=== PATIENT | female | born 1945 | race Caucasian/White ===

== ENCOUNTER 2017-04-09 13:52 | Emergency (ER) | payer MEDICARE ==
[~2017-04-09 13:52] MED LIST: Sodium Chloride 0.9% 1,000 ML BAG ONE
[2017-04-09] MEDS ORDERED: Ondansetron HCl/PF 4 MG/2 ML Vial ONE (14:25)
[2017-04-09] MEDS ORDERED: Metoclopramide HCl 10 MG/2 ML VIAL ONE (14:25)
[2017-04-09] MEDS ORDERED: Ketorolac Tromethamine 30 MG/ML VIAL ONE (14:25)
[2017-04-09 14:58] LABS: #Basophils 0.2 thou/uL (0.0-0.2); #Eosinphils 0.4 thou/uL (0.0-0.7); #Lymphocytes 2.9 thou/uL (1.20-3.40); #Monocytes 0.9 thou/uL (0.11-0.59); #Neutrophils 7.1 thou/uL (1.40-6.50); %Basophils 1.6 % (0.0-1.0); %Eosinophils 3.2 % (0.0-10.0); %Lymphocytes 25.2 % (21.0-51.0); %Monocytes 7.7 % (0.0-10.0); %Neutrophils 62.2 % (42.0-75.0); Hemoglobin 11.4 g/dL (12.0-16.0); Mean Corpuscular HGB CONC 33.4 g/dL (32.0-36.0); Mean Corpuscular Hemoglobin 30.5 pg (27.0-31.0); Mean Corpuscular Volume 91.3 fl (81.0-99.0); Mean Platelet Volume 7.5 fL (7.4-10.4); Platelet Count 147 thou/uL (130-400); RBC Distribution Width 14.5 % (11.5-14.5); Red Blood Cell (RBC) Count 3.73 mill/uL (4.20-5.40); White Blood Cell (WBC) Count 11.3 thou/uL (4.8-10.8)
[2017-04-09 15:12] LABS: ALT (SGPT) 31 U/L (8-55); AST (SGOT) 45 U/L (5-34); Albumin 4.3 g/dL (3.4-4.8); Alkaline Phosphatase 30 U/L (40-150); Anion Gap 18 mmol/L (10-20); BUN (Urea Nitrogen) 21 mg/dL (9.8-20.1); Bilirubin, Total 1.4 mg/dL (0.2-1.2); Calc. Creatinine Clearance 0 mL/min (70-130); Calcium 10.4 mg/dL (7.8-10.44); Carbon Dioxide 20 mmol/L (23-31); Chloride 103 mmol/L (98-107); Estimated GFR-MDRD 46; Globulin 4.1 g/dL (2.4-3.5); Glucose 177 mg/dL (83-110); Lipase 86 U/L (8-78); Potassium 4.4 mmol/L (3.5-5.1); Protein, Total 8.4 g/dL (6.0-8.3); Sodium 137 mmol/L (136-145)
[2017-04-09 15:15] LABS: Clarity Slightly Cloudy (Clear); Leukocyte Negative (Negative); Nitrite Negative (Negative); Protein, Urine (Dipstick) 100 mg/dL (Neg-Trace); Specific Gravity, Urine 1.028 (1.005-1.030)
[2017-04-09 15:16] LABS: Bacteria/HPF 2+ HPF (None Seen); Bilirubin Negative (Negative); Blood, Urine Negative (Negative); Crystals/HPF 1+ AMORPH URATES HPF (Negative); Glucose, Urine (Dipstick) Negative (Negative); RBC/HPF 0-3 HPF (0-3); Renal Epithelial 0-3 HPF (0-3); Transitional Epithelial 0-3 HPF (0-3); Urobilinogen 0.2 mg/dL (0.2-1.0)
--- NOTE | 2017-04-09 16:40 | CT ---
CT ABDOMEN AND PELVIS WITHOUT CONTRAST 04/09/17 HISTORY: Abdomen pain, left side. COMPARISON: CT abdomen from 2011. FINDINGS: Mild atelectatic changes in lung bases. No pericardial effusion. The liver is enlarged measuring just under 14 cm. There has been prior cholecystectomy. There is abnormal thickening of the first and second portions of the duodenum with adjacent stranding. There is also some thickening of the hepatic flexure of the colon which may be reactive in nature. There is also edema along the pancreatic head, although appe ars to be centered at the duodenum. The duodenal wall is abnormally thickened. There are a few abnormally enlarged mariusz hepatis lymph nodes. Aortoiliac contour is without aneurys mal dilatation. There is a right side indirect inguinal hernia. Moderate diverticular disease sigmoid colon without active inflammation. Inferior pole of the left kidney is hyperdense measuring 50 Hounsfield units well circumscribed mass measuring approximately 5 cm. There is a small splenule. There is incompletely evaluated collateral vessel coming from the SMV down to what appears to be the IMV. There appears to have been prior hysterectomy. IMPRESSION: 1. Abnormal circumferential wall thickening of the duodenum, first and second portions with adj acent stranding suggests duodenitis. Duodenal ulcer with impending rupture cannot be excluded. Surgi katherine consultation is recommended. No free intraperitoneal air is appreciated. 2. Hyperdense 5 cm mass anterior pole left kidney measuring 50 Hounsfield units. This is not gr eat enough in Hounsfield units to diagnose this as a definite proteinaceous cyst or hemorrhagic cyst , therefore a followup renal protocol CT or MRI is recommended. 3. Mild diverticular disease sigmoid colon without active inflammation. 4. Reactive thickening of the hepatic flexure of the colon with some mild edema around the panc reas. 5. Abnormal dilated collateral vessel from what appears to be the inferior mesenteric vein to t he superior mesenteric vein. 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 6. Severe disc arthropathy throughout the lumbar spine. 7. Single punctate 2 mm calculus superior pole right kidney without hydronephrosis or obstructi ve uropathy. 8. Small fat containing right sided indirect inguinal hernia. POS: [facility]
[2017-04-09] MEDS ORDERED: Pantoprazole 40 MG VIAL ONE (17:37)
== END 2017-04-09 18:06 | disposition short-term general hospital (02) ==
LOC: MADERS 13:52
DX: K29.80 Duodenitis without bleeding (principal); I10 Essential (primary) hypertension; E11.9 Type 2 diabetes mellitus without complications; N39.0 Urinary tract infection, site not specified; E78.5 Hyperlipidemia, unspecified
CPT/HCPCS: 36415; 74176; 80053; 81001; 82150; 83690; 83880; 85025; 87086; 93005; 96361; 96365; 96375; C9113; J1885; J1956; J2270; J2405; J2765; J7050